=== PATIENT | female | born 1990 | race Caucasian/White ===

== ENCOUNTER 2016-10-01 02:35 | Inpatient (IN) | payer MEDICAID ==
[~2016-10-01] VITALS: Ht 149.9 cm; Wt 171.2 kg
--- NOTE | ~2016-10-01 | OR ---
PATIENT'S NAME: RADHA [facility] AGE: 25 [address] ROOM: [address] [address] LOCATION: GOBS ADMIT DATE: 10/01/2016 OR/Procedure Report DISCHARGE DATE: FAMILY PHYSICIAN: Siobhan Soto MD ATTENDING PHYSICIAN: Akanksha Dodd SURGEON: Akanksha Dodd MD SET O TYPE OPERATOR: DATE OF PROCEDURE: 10/01/2016 PREOPERATIVE DIAGNOSES: 1. Term . 2. Spontaneous labor. PROCEDURE: Precipitous vaginal. ANESTHESIA: None. PROCEDURE NOTE: Radha is a 25-year-old, 6, para 4 female with an EDC is 10/12/2016 by ultrasound who arrived in spontaneous labor. She did not call ahead. Her labor started around 9:00 p.m. She arrived around 3 in the morning. She was 9 cm and admitted to Labor and Delivery. I was notified and was on my way in. She delivered precipitously. The bag of water broke and then the baby came out rapidly. Nurses were in attendance. There was nuchal cord x2, but she delivered right through that. Baby had good spontaneous cry and is a female weighing 7 pounds 1 ounces. scores were 8 and 9 at one and five minutes. Drying and stimulation is all that was required for baby. When I arrived, baby was in mom's arms and cord was hanging out of her vaginal area with a clamp. I obtained cord blood. Placenta was delivered spontaneously and intact and she did receive Pitocin IV after that. There were no cervical or vaginal lacerations. No repair required. EBL about 300 mL. No complications. Mother and are resting comfortably in the birthing room without difficulty. MD MUKESH GARRISONE/modl /[id number] d: 10/01/16 0726 t: 10/05/16 0749, OPERATIVE SUMMARY
[~2016-10-01 02:35] MED LIST: MOTRIN800 MG PO; PERCOCET 5-3251 EACH PO; PRENATAL 1+1)(P1 TAB PO
[2016-10-01 03:22] LABS: BASOPHIL % 0.2 %; EOSINOPHIL % 0.2 %; HEMOGLOBIN 11.9 g/dL (11.0-15.0); IMMATURE GRANULOCYTE # 0.1 K/uL (0.0-0.3); IMMATURE GRANULOCYTE % 0.5 %; LYMPHOCYTE % 24.7 %; MCH 28.4 pg (27.0-34.0); MCV 83.5 fl (83.0-98.0); MONOCYTE # 0.5 K/uL (0.0-1.0); NEUTROPHIL # (ANC) 8.5 K/uL (1.8-7.8); NEUTROPHIL % 70.4 %; NRBC % 0 /100WBC (0-0.00); PLATELET COUNT 178 K/uL (150-450); RBC 4.19 M/uL (3.50-5.00); RDW-CV 12.8 % (11.9-14.6)
--- NOTE | 2016-10-01 14:46 | NUR ---
Met patient, significant other and multiple other family members at bedside today. Introduced myself and explained my role with the CM department. Mom states she has all necessary items for baby except a crib or bassinet. I stressed with mom the importance of baby sleeping in their own bed and not sleeping with parents. Mom voiced her understanding and states they will be buying a crib or bassinet for baby once she is discharged. Provided her with a list of community resources in [place] (provided it in [employer] per her request). Also gave her a voucher for the [facility] to grape [facility] some baby items. Discussed signs of post depression and left her the handout on this written in [employer]. No other needs at this time. Will continue to follow and offer supports as needed.
[2016-10-02 05:28] LABS: BASOPHIL % 0.3 %; EOSINOPHIL # 0.1 K/uL (0.0-0.5); EOSINOPHIL % 1.2 %; HEMATOCRIT 31.6 % (33.0-46.0); HEMOGLOBIN 10.4 g/dL (11.0-15.0); IMMATURE GRANULOCYTE % 0.6 %; LYMPHOCYTE # 2.6 K/uL (0.8-4.0); LYMPHOCYTE % 37.8 %; MCHC 32.9 gm/dL (32.0-36.5); MCV 85.2 fl (83.0-98.0); MONOCYTE # 0.4 K/uL (0.0-1.0); MONOCYTE % 5.1 %; MPV 9.9 fl (9.4-12.4); NEUTROPHIL # (ANC) 3.8 K/uL (1.8-7.8); NRBC % 0 /100WBC (0-0.00); PLATELET COUNT 163 K/uL (150-450); RBC 3.71 M/uL (3.50-5.00); RDW-CV 13.1 % (11.9-14.6); WBC 6.9 K/uL (4.0-11.0)
--- NOTE | 2016-10-02 05:41 | NUR ---
VSS. FUNDUS FIRM, EVEN 1 DOWN. SMALL FLOW. PLANNING ON GOING HOME TODAY
[2016-10-02] MEDS ORDERED: MOTRIN800 MG PO (13:08)
[2016-10-02] MEDS ORDERED: APNO TOP (13:09)
== END 2016-10-02 15:15 | disposition disaster alternative care site (69) | DRG 775 ==
LOC: GOBM 02:35 → GOBS 02:36 → GOBM 02:37 → GOBS 03:01
PROVIDERS: ADMIT Family Medicine
PROC: 10E0XZZ Delivery of Products of Conception, External Approach (ICD-10-PCS; principal; 2016-10-01)
PROC: 3E033VJ Introduction of Other Hormone into Peripheral Vein, Percutaneous Approach (ICD-10-PCS; principal; 2016-10-01)
DX: O62.3 Precipitate labor (principal); Z37.0 Single live birth; Z3A.38 38 weeks gestation of pregnancy
CPT/HCPCS: J2590; J7120